=== PATIENT | male | born 1970 | race Caucasian/White ===

== ENCOUNTER → 2018-02-01 | Outpatient (CLI) | payer OTHER ==
[~2018-02-01] MED LIST: FAMO20TA3 PO; HYDR-3583 PO
== END ==
LOC: CARD 13:19
PROVIDERS: ATTEND Internal Medicine Cardiovascular Disease
DX: R42 Dizziness and giddiness (principal); R07.89 Other chest pain; R00.2 Palpitations; R06.02 Shortness of breath; I08.1 Rheumatic disorders of both mitral and tricuspid valves; E66.9 Obesity, unspecified; Z72.0 Tobacco use
CPT/HCPCS: 93017; 93306

== ENCOUNTER → 2018-02-06 | Outpatient (CLI) | payer OTHER ==
[2018-02-06] VITALS (22 sets, daily range): BP systolic 98–122; BP diastolic 66–90
[~2018-02-06] VITALS: Ht 188 cm; Wt 108.9 kg
[~2018-02-06] MED LIST changes: +ATROPINE INJECTION 1 MG/10 ML SYR (ABBOTT) ONE; +NS IV 1000 ML 1,000 ML IV SCH; +NS IV 1000 ML 1,000 ML ONE
--- NOTE | 2018-02-06 12:03 | Cardiology Tilt Table Test ---
Cardiology-Tilt Table Test Tilt Table Test Date 02/06/[address] Gillespie Baseline Vitals Vital Signs Date Time Temp Pulse Resp B/P (MAP) Pulse Ox O2 Delivery O2 Flow Rate FiO2 02/06/18 11:05 68 20 122/90 (101) 99 Vital Signs VS - Last 72 Hours, by Label 02/06/18 02/06/18 02/06/18 02/06/18 11:05 11:20 11:21 11:22 Pulse 68 65 66 69 Resp 20 16 18 B/P (MAP) 122/90 (101) 118/84 (95) 114/76 (89) 110/86 (94) Pulse Ox 99 99 99 98 02/06/18 02/06/18 02/06/18 02/06/18 11:23 11:24 11:26 11:28 Pulse 68 68 59 B/P (MAP) 122/74 (90) 116/81 (93) 121/76 (91) 119/78 (92) Pulse Ox 98 99 99 02/06/18 02/06/18 02/06/18 02/06/18 11:29 11:31 11:32 11:34 Pulse 72 62 73 79 B/P (MAP) 113/72 (86) 107/68 (81) 104/76 (85) 110/74 (86) Pulse Ox 100 97 98 97 02/06/18 02/06/18 02/06/18 02/06/18 11:35 11:36 11:37 11:39 Pulse 74 73 78 75 B/P (MAP) 99/69 (79) 98/70 (79) 111/87 (95) 110/73 (85) Pulse Ox 96 96 98 100 02/06/18 02/06/18 02/06/18 02/06/18 11:40 11:41 11:43 11:44 Pulse 74 78 72 69 B/P (MAP) 105/84 (91) 118/71 (87) 108/70 (83) 104/72 (83) Pulse Ox 98 98 97 98 02/06/18 02/06/18 11:46 11:49 Pulse 71 65 B/P (MAP) 109/75 (86) 120/66 (84) Pulse Ox 97 98 Patient was tilted to 75 degrees for [10] minutes, then returned to supine position, given [2] sublingual nitroglycerin tablets, then tilted again to 75 degrees for [15] minutes. During test, patient was: asymptomatic In Conclusion;: Negative Tilt Table Test Patient complains of episodes of ringing in ears with occasional episode of dizziness. Will refer him to Dr. Ureña for further evaluation. This is Merline Champion PA-C, as a scribe for Dr. Carrizales. MERLINE PARKER February 06, 2018 12:03
== END ==
LOC: CARD 10:44
PROVIDERS: ATTEND Internal Medicine Cardiovascular Disease
DX: R07.89 Other chest pain (principal); R00.2 Palpitations; R06.02 Shortness of breath; R42 Dizziness and giddiness; E66.9 Obesity, unspecified; Z68.30 Body mass index [BMI] 30.0-30.9, adult; Z72.0 Tobacco use
CPT/HCPCS: 93660

== ENCOUNTER → 2019-10-09 | Outpatient (CLI) | payer BC ==
[~2019-10-09] MED LIST changes: -ATROPINE INJECTION 1 MG/10 ML SYR (ABBOTT) ONE; -NS IV 1000 ML 1,000 ML IV SCH; -NS IV 1000 ML 1,000 ML ONE
--- NOTE | 2019-10-09 12:06 | Diagnostic Imaging Report ---
INDICATION: Neck pain radiating to the left shoulder. TIME OF EXAM: 11:39 a.m. FINDINGS: There is straightening of the normal cervical lordotic curvature. There is some generalized degenerative disc disease with variable disc space narrowing and marginal spurring, greatest at C4-C5 and C5-C6 levels. The prevertebral tissues are normal. Odontoid appears intact. No fractures are seen. Patient does have small cervical ribs. IMPRESSION: Cervical spondylosis. No acute bony abnormality is detected. Dictated by: Dictated on workstation # [id number]
== END ==
LOC: RAD 11:23
PROVIDERS: ATTEND Family Medicine
DX: M47.812 Spondylosis without myelopathy or radiculopathy, cervical region (principal)
CPT/HCPCS: 72040

== ENCOUNTER → 2019-10-29 | Outpatient (CLI) | payer BC ==
--- NOTE | 2019-10-29 09:19 | Diagnostic Imaging Report ---
PROCEDURE: MR imaging cervical spine without contrast. TECHNIQUE: Multiplanar, multisequence MR imaging of the cervical spine was performed without contrast. INDICATION: Neck pain. Left arm radiculopathy. COMPARISON: Cervical spine radiographs on 10/09/2019. FINDINGS: No acute fracture or dislocation is seen in the cervical spine. There is straightening of the cervical spine. The vertebral body heights and disc spaces are well maintained. The bone marrow signal is unremarkable. No focal osseous lesions. The craniocervical junction is maintained. The cervical spinal cord demonstrates normal intrinsic signal. No epidural collections are seen. The included brainstem and posterior fossa have normal appearance. Multilevel degenerative changes are seen in the cervical spine with posterior disc bulges and uncovertebral arthropathy. C2-C3: No significant spinal canal or foraminal stenosis. C3-C4: No significant spinal canal or foraminal stenosis. C4-C5: Posterior disc bulge and uncovertebral arthropathy results in no significant spinal canal narrowing and no significant foraminal narrowing. C5-C6: Posterior disc bulge and uncovertebral arthropathy results in mild spinal canal narrowing and moderate left and no right foraminal stenosis. C6-C7: Uncovertebral arthropathy results in no significant spinal canal narrowing and no significant foraminal narrowing. C7-T1: No significant spinal canal or foraminal stenosis. The soft tissues of neck are unremarkable. Impression: 1. No acute fracture or dislocation of the cervical spine. 2. Multilevel degenerative changes in the cervical spine, greatest at C5-C6 with moderate left foraminal stenosis at this level. Dictated by: Dictated on workstation # [id number]
== END ==
LOC: RAD 08:08
PROVIDERS: ATTEND Physician Assistant
DX: M48.02 Spinal stenosis, cervical region (principal); M47.812 Spondylosis without myelopathy or radiculopathy, cervical region
CPT/HCPCS: 72141